=== PATIENT | male | born 1980 | race Two or more races ===

== ENCOUNTER 2020-01-04 11:09 | Inpatient (IN) | payer MEDICAID ==
[~2020-01-04] VITALS: Ht 180.3 cm; Wt 80.8 kg
--- NOTE | 2020-01-04 11:28 | NUR ---
THIS IS A 39 YO M W/ C/O LT KNEE PAIN/SWELLING X3 DAYS AFTER FALL. WOUND W/ PURULENT DRAINAGE TO LT KNEE OBSERVED. PT RESTING ON GURNEY W/ CALL LIGHT IN REACH AND FAMILY AT BEDSIDE. PROVIDED ICE PACK FOR COMFORT. AWAITING ED EVAL.
[2020-01-04 12:20] LABS: MEAN CORPUSCULAR HEMOGLOBIN 30.1 pg (27.5-34.5); MEAN CORPUSCULAR HGB CONC 32.1 g/dL (33.2-36.2); MEAN CORPUSCULAR VOLUME 93.7 fL (81-97); MEAN PLATELET VOLUME 8.6 fL (7.4-10.4); PLATELET COUNT 239 x10^3/uL (130-400); RED BLOOD COUNT 5.08 x10^6/uL (4.38-5.82); RED CELL DISTRIBUTION WIDTH 13.7 % (9.4-14.8)
[2020-01-04 12:28] LABS: ALBUMIN 3.3 g/dL (3.4-5.0); ANION GAP 4 mmol/L (5-15); CALCIUM 9.1 mg/dL (8.5-10.1); CHLORIDE 101 mmol/L (98-107)
[2020-01-04 12:51] LABS: BASOPHILS # (AUTO) 0.05 x10^3/uL (0-0.1); BASOPHILS % (AUTO) 0 % (0-1); EOSINOPHILS # (AUTO) 0.01 x10^3/uL (0-0.4); EOSINOPHILS % (AUTO) 0 % (1-7); LYMPHOCYTES # (AUTO) 0.79 x10^3/uL (1-3.4); LYMPHOCYTES % (AUTO) 4 % (22-44); MD SCAN; MONOCYTES # (AUTO) 1.05 x10^3/uL (0.2-0.8); MONOCYTES % (AUTO) 5 % (2-9); NEUTROPHILS # (AUTO) 18.81 x10^3/uL (1.8-6.8); NEUTROPHILS % (AUTO) 91 % (42-75)
[2020-01-04] MEDS ORDERED: PIPERACILLIN/TAZO/PMX 3.375GM 50 ML IVPB ONE (13:00)
[2020-01-04] MEDS ORDERED: VANCOMYCIN PER PHARMACY MC ONE (13:00)
[2020-01-04] MEDS ORDERED: SODIUM CHLORIDE FLUSH 10ML SYR IVF ONE (13:00)
[2020-01-04] MEDS ORDERED: PIPERACILLIN/TAZO/PMX 3.375GM 50 ML ONE (13:23)
[2020-01-04] MEDS ORDERED: VANCOMYCIN 2,000 MG in SODIUM CHLORIDE 0.9% 500 ML IV ONE (13:30)
--- NOTE | 2020-01-04 13:49 | NUR ---
PT RESTING ON GURNEY W/ CALL LIGHT IN REACH AND FAMILY AT BEDSIDE. VSS, NADN. PT AWARE OF POC FOR ADMIT. PIV STARTED, 1 SET OF CULTURES DRAWN THEN ABX STARTED. PT DENIES FURTHER NEEDS AT THIS TIME.
[2020-01-04] MEDS ORDERED: SODIUM CHLORIDE FLUSH 10ML SYR IVF PRN (14:00)
--- NOTE | 2020-01-04 14:50 | NUR ---
REPORT GIVEN TO ISACC HERMAN. PT IS READY FOR TRANSPORT W/ [facility] INFUSING APPROPRIATELY.
[2020-01-04] MEDS ORDERED: morphine SULFATE 10 MG/ML, 1ML IVPush PRN (15:00)
[2020-01-04] MEDS ORDERED: BISACODYL 10 MG SUPP PR PRN (15:00)
[2020-01-04] MEDS ORDERED: ACETAMINOPHEN 325 MG TABLET PO PRN (15:00)
[2020-01-04] MEDS ORDERED: ONDANSETRON 2MG/ML, 2ML IVPush PRN (15:00)
[2020-01-04] MEDS ORDERED: POLYETHYLENE GLYCOL 17 GM PACKET PO PRN (15:00)
[2020-01-04] MEDS ORDERED: LORazepam 1MG TABLET PO PRN (15:00)
[2020-01-04] MEDS ORDERED: ONDANSETRON ODT 4 MG PO PRN (15:00)
[2020-01-04 15:25] VITALS: BP 152/95
[2020-01-04] MEDS ORDERED: VANCOMYCIN PER PHARMACY MC PRN (15:30)
[2020-01-04] MEDS ORDERED: PHARMACOKINETIC MONITORING MC PRN (16:00)
[2020-01-04] MEDS: ENOXAPARIN 40 MG/0.4 ML SQ SCH (16:00)
[2020-01-04 16:35] LABS: HCT (SEDRATE) 43.9 % (39.2-51.8)
[2020-01-04] MEDS: NICOTINE 14MG/24 HR PATCH.TD24 TD SCH (16:38)
[2020-01-04] MEDS: PIPERACILLIN/TAZO/PMX 3.375GM 50 ML IV SCH ×2 (17:11→23:13)
[2020-01-04] MEDS ORDERED: GADOTERATE 10 MMOL/20 ML VIAL ONE (17:46)
[2020-01-04 19:04] LABS: MICROSCOPIC INDICATED
[2020-01-04] MEDS: LACTATED RINGERS 1,000 ML IV SCH (19:42)
[2020-01-04 20:05] VITALS: BP 138/86
[2020-01-04] MEDS: OXYcodone IR 5MG TABLET PO PRN (22:11)
[2020-01-05 00:45] VITALS: BP 117/71
[2020-01-05] MEDS: VANCOMYCIN 1,600 MG in SODIUM CHLORIDE 0.9% 250 ML IV SCH ×2 (02:55→14:32)
[2020-01-05 05:06] LABS: MEAN CORPUSCULAR HEMOGLOBIN 30.5 pg (27.5-34.5); MEAN CORPUSCULAR HGB CONC 32.6 g/dL (33.2-36.2); MEAN CORPUSCULAR VOLUME 93.5 fL (81-97); MEAN PLATELET VOLUME 8.7 fL (7.4-10.4); PLATELET COUNT 217 x10^3/uL (130-400); RED BLOOD COUNT 4.53 x10^6/uL (4.38-5.82)
[2020-01-05] MEDS: PIPERACILLIN/TAZO/PMX 3.375GM 50 ML IV SCH ×4 (05:16→23:59)
[2020-01-05 05:17] LABS: ANION GAP 3 mmol/L (5-15); CALCIUM 8.7 mg/dL (8.5-10.1); CHLORIDE 103 mmol/L (98-107); CREATININE 1.03 mg/dL (0.7-1.3)
[2020-01-05 05:48] LABS: BASOPHILS # (AUTO) 0.03 x10^3/uL (0-0.1); BASOPHILS % (AUTO) 0 % (0-1); EOSINOPHILS # (AUTO) 0.09 x10^3/uL (0-0.4); EOSINOPHILS % (AUTO) 1 % (1-7); LYMPHOCYTES # (AUTO) 1.42 x10^3/uL (1-3.4); LYMPHOCYTES % (AUTO) 8 % (22-44); MD SCAN; MONOCYTES % (AUTO) 6 % (2-9); NEUTROPHILS # (AUTO) 16.09 x10^3/uL (1.8-6.8); NEUTROPHILS % (AUTO) 86 % (42-75)
[2020-01-05 08:46] VITALS: BP 128/78
[2020-01-05] MEDS: SENNA/DOCUSATE TABLET PO SCH (08:50)
[2020-01-05] MEDS: OXYcodone IR 5MG TABLET PO PRN ×3 (08:51→20:29)
[2020-01-05] MEDS: LACTATED RINGERS 1,000 ML IV SCH (10:22)
[2020-01-05 14:31] VITALS: BP 116/69
[2020-01-05] MEDS: ENOXAPARIN 40 MG/0.4 ML SQ SCH (16:00)
[2020-01-05] MEDS: NICOTINE 14MG/24 HR PATCH.TD24 TD SCH (16:07)
[2020-01-05 19:01] VITALS: BP 137/79
[2020-01-06 00:08] VITALS: BP 134/82
[2020-01-06] MEDS: LACTATED RINGERS 1,000 ML IV SCH ×2 (03:00→15:19)
[2020-01-06] MEDS: VANCOMYCIN 1,600 MG in SODIUM CHLORIDE 0.9% 250 ML IV SCH ×2 (03:50→15:18)
[2020-01-06] MEDS: PIPERACILLIN/TAZO/PMX 3.375GM 50 ML IV SCH ×4 (06:00→23:05)
[2020-01-06 06:20] LABS: MEAN CORPUSCULAR HEMOGLOBIN 30.4 pg (27.5-34.5); MEAN CORPUSCULAR HGB CONC 32.5 g/dL (33.2-36.2); MEAN CORPUSCULAR VOLUME 93.6 fL (81-97); MEAN PLATELET VOLUME 8.8 fL (7.4-10.4); PLATELET COUNT 253 x10^3/uL (130-400); RED CELL DISTRIBUTION WIDTH 13.7 % (9.4-14.8)
[2020-01-06 06:27] LABS: ANION GAP 3 mmol/L (5-15); CALCIUM 8.3 mg/dL (8.5-10.1); CHLORIDE 108 mmol/L (98-107); CREATININE 0.94 mg/dL (0.7-1.3)
[2020-01-06 06:46] LABS: BASOPHILS # (AUTO) 0.04 x10^3/uL (0-0.1); BASOPHILS % (AUTO) 0 % (0-1); EOSINOPHILS # (AUTO) 0.02 x10^3/uL (0-0.4); EOSINOPHILS % (AUTO) 0 % (1-7); LYMPHOCYTES # (AUTO) 0.93 x10^3/uL (1-3.4); LYMPHOCYTES % (AUTO) 6 % (22-44); MD SCAN; MONOCYTES # (AUTO) 1.18 x10^3/uL (0.2-0.8); MONOCYTES % (AUTO) 7 % (2-9); NEUTROPHILS # (AUTO) 13.83 x10^3/uL (1.8-6.8); NEUTROPHILS % (AUTO) 86 % (42-75)
[2020-01-06] MEDS: SENNA/DOCUSATE TABLET PO SCH (09:00)
[2020-01-06 10:01] VITALS: BP 122/77
[2020-01-06] MEDS ORDERED: MIDAZOLAM 1 MG/ML, 2ML ONE (13:05)
[2020-01-06] MEDS ORDERED: FENTANYL PF 250 MCG/5ML ONE (13:05)
[2020-01-06] MEDS ORDERED: CHLORHEXIDINE 15 ML UDC ONE (13:05)
[2020-01-06] MEDS ORDERED: DEXAMETHASONE 4 MG/ML, 1ML ONE (13:26)
[2020-01-06] MEDS ORDERED: PROPOFOL 10 MG/ML, 20ML ONE (13:26)
[2020-01-06] MEDS ORDERED: KETOROLAC 30 MG/1 ML ONE (13:26)
[2020-01-06] MEDS ORDERED: ONDANSETRON 2MG/ML, 2ML ONE (13:26)
[2020-01-06] MEDS ORDERED: CHLORHEXIDINE 15 ML UDC MM ONE (13:30)
[2020-01-06] MEDS ORDERED: ONDANSETRON 2MG/ML, 2ML IVPush PRN (14:00)
[2020-01-06] MEDS ORDERED: HYDROmorphone 1 MG/ML, 1ML INJ IVPush PRN (14:00)
[2020-01-06] MEDS ORDERED: ACETAMINOPHEN 325 MG TABLET PO PRN (14:00)
[2020-01-06] MEDS ORDERED: OXYcodone 5 MG/5 ML ORAL.SOL UDC PO PRN (14:00)
[2020-01-06] MEDS ORDERED: FENTANYL PF 100 MCG/2ML ONE (14:43)
[2020-01-06] MEDS: FENTANYL PF 100 MCG/2ML IV PRN ×2 (14:45→14:53)
[2020-01-06 15:25] VITALS: BP 142/97
[2020-01-06] MEDS: NICOTINE 14MG/24 HR PATCH.TD24 TD SCH (16:35)
[2020-01-06] MEDS: OXYcodone IR 5MG TABLET PO PRN (18:42)
[2020-01-06 19:43] VITALS: BP 129/82
[2020-01-07 00:17] VITALS: BP 120/81
[2020-01-07] MEDS: VANCOMYCIN 1,600 MG in SODIUM CHLORIDE 0.9% 250 ML IV SCH (02:30)
[2020-01-07 03:57] VITALS: BP 119/80
[2020-01-07] MEDS: PIPERACILLIN/TAZO/PMX 3.375GM 50 ML IV SCH ×2 (05:52→11:22)
[2020-01-07 05:59] LABS: BASOPHILS % (AUTO) 0 % (0-1); EOSINOPHILS % (AUTO) 0 % (1-7); LYMPHOCYTES # (AUTO) 0.85 x10^3/uL (1-3.4); LYMPHOCYTES % (AUTO) 6 % (22-44); MD NO; MEAN CORPUSCULAR HEMOGLOBIN 30.4 pg (27.5-34.5); MEAN CORPUSCULAR HGB CONC 32.3 g/dL (33.2-36.2); MEAN CORPUSCULAR VOLUME 94.2 fL (81-97); MEAN PLATELET VOLUME 8.7 fL (7.4-10.4); MONOCYTES # (AUTO) 1.06 x10^3/uL (0.2-0.8); MONOCYTES % (AUTO) 7 % (2-9); NEUTROPHILS # (AUTO) 13.54 x10^3/uL (1.8-6.8); NEUTROPHILS % (AUTO) 88 % (42-75); PLATELET COUNT 321 x10^3/uL (130-400); RED BLOOD COUNT 4.27 x10^6/uL (4.38-5.82); RED CELL DISTRIBUTION WIDTH 13.8 % (9.4-14.8)
[2020-01-07 06:07] LABS: ANION GAP 7 mmol/L (5-15); CALCIUM 8.9 mg/dL (8.5-10.1); CHLORIDE 107 mmol/L (98-107); CREATININE 1.02 mg/dL (0.7-1.3)
[2020-01-07] MEDS: SENNA/DOCUSATE TABLET PO SCH (08:34)
[2020-01-07 09:14] VITALS: BP 129/82
[2020-01-07 12:42] VITALS: BP 143/87
== END 2020-01-07 13:47 | disposition left against medical advice (07) | DRG 313 ==
LOC: ED 11:45 → EDIP 14:00 → 3N 15:00
PROVIDERS: ADMIT Internal Medicine; ATTEND Internal Medicine
PROC: 0S9D0ZZ Drainage of Left Knee Joint, Open Approach (ICD-10-PCS; principal; 2020-01-06 14:00)
DX: S82.202A Unspecified fracture of shaft of left tibia, initial encounter for closed fracture (principal); L03.116 Cellulitis of left lower limb; L02.416 Cutaneous abscess of left lower limb; F17.210 Nicotine dependence, cigarettes, uncomplicated; F12.90 Cannabis use, unspecified, uncomplicated; Z59.0 Homelessness; Z53.29 Procedure and treatment not carried out because of patient's decision for other reasons; W01.0XXA Fall on same level from slipping, tripping and stumbling without subsequent striking against object, initial encounter; Y93.89 Activity, other specified; Y92.89 Other specified places as the place of occurrence of the external cause; Y99.8 Other external cause status; Z20.828 Contact with and (suspected) exposure to other viral communicable diseases
CPT/HCPCS: 36415; 80048; 80202; 81001; 82040; 83735; 84100; 84443; 85025; 85651; 87015; 87040; 87070; 87075; 87077; 87086; 87102; 87116; 87147; 87186; 87205; 87206; 87635; G0378; J1100; J1885; J2250; J2405; J2543; J2704; J3010; J3370; A9575; J2270; J7040; J7050; J7120